=== PATIENT | female | born 1935 | race Caucasian/White ===

== ENCOUNTER → 2016-12-12 | Outpatient (CLI) | payer OTHER ==
[~2016-12-12] VITALS: Ht 147.3 cm; Wt 46.4 kg
[~2016-12-12] MED LIST: ACETAMINOPHEN325 M1 PO; ADULT LOW DOSE81 MG PO; ALEVE220 MG PO; AMBIEN 5 MG TABL5 M1 PO; ANTIBIOTIC OINTMENT; ASPIR 8181 M1 PO; ATORVASTATIN CA80 MG PO; CALCIUM OYSTER500 MG PO; CARISOPRODOL 3350 MG PO; CELEBREX 200 M200 M1 PO; CELEBREX 200 M200 MG PO; COLACE 100 MG100 MG OR; CYMBALTA30 MG PO; DESYREL100 MG PO; DESYREL50 MG PO; DICLOFENAC SOD50 M1 PO; DILAUDID 4 MG TA4 M1 PO; DILAUDID4 MG PO; FAMOTIDINE20 MG OR; FENTANYL PA12 MCG/HR TD; FENTANYL PA25 MCG/HR TD; FENTANYL PA25 MCG/HR TP; FENTANYL PA50 MCG/HR TP; FISH OIL 1,0001 EAC7 PO; FLEXERIL PO; FORTEO PEN750 MCG/3 SC; GABAPENTIN100 MG PO; GLYCOLAX POWDER17 G1 PO; IBUPROFEN200 M2 PO; INTRATHECAL MED; KEFLEX500 MG PO; LEVOTHROID PO; LEVOTHYROXINE0.2 M1 PO; LIDODERM 5%1 PATCH TOP; LIPITOR80 MG PO; MELOXICAM7.5 MG PO; MULTIVITAMINS PO; NEURONTIN 300300 M1 PO; OMEPRAZOLE40 MG PO; PRILOSEC 10MG C10 MG PO; SENNA PO; SIMVASTATIN80 MG PO; TRAZODONE 150150 M1 PO; TRAZODONE HCL50 MG PO; VITAMIN D 5050000 I1 PO; VITAMIN D1000 UNI1 PO; VITAMIN D2000 UNIT PO; XANAX 0.25 MG0.25 MG PO
--- NOTE | ~2016-12-12 | HPC ---
[facility] [address] [place] [address] PAIN MANAGEMENT CONSULTATION Name: DADA MAIREE Room #: REG [facility]#: [id number] Admission: 12/12/16 Attend Phys: Balta Frausto MD Discharge: Date of : 33 Report #: [id number] THIS REPORT FOR: //name// CC: OLI Frausto Followup visit for intrathecal pump management and chronic intractable pain and management of high risk medication. The patient is here today with a cold. She , both she and her had an upper respiratory tract infection, which has been going around flocks with [place]. 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 Pain management has been good with the pump and her spinal cord stimulator placed by Dr. Moore. 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 PHYSICAL EXAMINATION: GENERAL: Her energy level is down. She seems tired. VITAL SIGNS: Her blood pressure 124/67, respirations are 28. RESPIRATION: She has course breath sounds bilaterally, but is comfortable with breathing. NOSE: Nasal congestion is noted. BACK: Tender. She ambulates without a cane. IMPRESSION: Chronic low back pain, currently well managed with intrathecal therapy and spinal cord stimulation. Occasional breakthrough dose of hydromorphone has been provided for her under terms of a written opioid agreement. IMPRESSION: 1. Chronic intractable back pain, post-laminectomy. 2. Management of intrathecal infusion pump with refill and reprogramming today. 3. Management of high risk medication. 4. Recent upper respiratory tract infection, likely viral. PROCEDURE: Skin was prepped with ChloraPrep, skin anesthetized. A 22-gauge non-coring needle advanced in the pump. Old medication removed and discarded. Pump was refilled with clonidine and hydromorphone. Reprogramming session performed. Her next refill will be before March 09. Her JOHN is 44. By: [id number] Balta Frausto MD /nt
[2016-12-12 14:35] VITALS: BP 124/67
== END ==
LOC: PAIN 07:14
DX: Z45.1 Encounter for adjustment and management of infusion pump (principal); G89.29 Other chronic pain

== ENCOUNTER → 2017-02-20 | Outpatient (CLI) | payer OTHER ==
[~2017-02-20] VITALS: Ht 149.9 cm; Wt 47.7 kg
[~2017-02-20] MED LIST changes: +AMOXICILLIN 50500 MG PO; +FUROSEMIDE 20 M20 MG PO; +MOBIC15 MG PO
--- NOTE | ~2017-02-20 | HPC ---
[facility] [address] [place] [address] PAIN MANAGEMENT CONSULTATION Name: DADA MARIEE Room #: REG MIN Darius.#: [id number] Admission: 02/20/17 Attend Phys: Balta Frausto MD Discharge: Date of : 33 Report #: [id number] THIS REPORT FOR: //name// CC: Richard Frausto DATE OF SERVICE: 02/20/2017 Followup visit for chronic low back pain with radiculopathy, post-laminectomy syndrome, management of intrathecal infusion pump and high risk medication. The patient returns to the pain clinic today and would like to renew her hydromorphone. She has an intrathecal pump. It is providing high dose hydromorphone and clonidine high enough that we have decided that we are not going to increase her pump due to concerns of intrathecal granuloma. She remains the only patient of my practice. 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 She is at risk of this once again and we are doing our best to prevent that. She also has a spinal cord stimulator placed recently by Dr. Moore and she feels this has helped her pain and neuropathy as well. Nonetheless, she still uses hydromorphone for breakthrough pain as needed. She is doing well. She came in today with her badge on. 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 Her pain intensity is a 4/10, which she describes mostly his low back and left knee pain. Knee pain has been ongoing for about 6 months. There have been no other medical changes since her last visit here. She and her Curly are delightful and doing well in their [facility] [place]. PHYSICAL EXAMINATION: She is bright eyed, pleasant, alert and oriented. No signs of overmedication. Good insight and memory. Blood pressure 121/41, heart rate 64. BMI is 21.2. Pump is nontender in the right lower abdomen. Spinal cord stimulator in the back also looks good with no tenderness. Knee is tender, is most problematic pain at this time. IMPRESSION: 1. Chronic intractable back pain, post-laminectomy syndrome. 2. Osteoarthritis, right knee. 3. Management of intrathecal infusion pump. 4. Management of high risk medications. PLAN: I have renewed her hydromorphone at 4 mg 1 tablet q. 6 hours p.r.n. [address] [address] PAIN MANAGEMENT CONSULTATION Name: DADA MRAIEE Room #: REG CLI [facility]#: [id number] Admission: 02/20/17 Attend Phys: Balta Frausto MD Discharge: Date of : 33 Report #: [id number] breakthrough pain. Important safeguarding issues reviewed once again. Followup visit is scheduled for pump refill sometime in the next month or so. <ELECTRONICALLY SIGNED> By: Balta Frausto MD 02/20/17 1714 1135 1222 Balta Frausto MD /felix
[2017-02-20 09:50] VITALS: BP 121/41
== END ==
LOC: PAIN 01-24 07:03
DX: M96.1 Postlaminectomy syndrome, not elsewhere classified (principal); M54.5 Low back pain; M17.11 Unilateral primary osteoarthritis, right knee

== ENCOUNTER → 2017-03-10 | Outpatient (CLI) | payer OTHER ==
[~2017-03-10] VITALS: Ht 149.9 cm; Wt 47.4 kg
[2017-03-10 13:53] VITALS: BP 113/52
== END | disposition home or self-care (01) ==
LOC: PAIN 06:56
DX: M54.5 Low back pain (principal); M96.1 Postlaminectomy syndrome, not elsewhere classified; M25.562 Pain in left knee; G89.29 Other chronic pain; M19.90 Unspecified osteoarthritis, unspecified site; F11.20 Opioid dependence, uncomplicated; Z98.890 Other specified postprocedural states; Z79.82 Long term (current) use of aspirin

== ENCOUNTER → 2017-06-05 | Outpatient (CLI) | payer OTHER ==
[~2017-06-05] VITALS: Ht 149.9 cm; Wt 47.1 kg
[~2017-06-05] MED LIST changes: +ALPRAZOLAM 0.0.25 M1 PO; +LASIX 20 MG TAB20 MG PO
--- NOTE | ~2017-06-05 | HPC ---
[facility] [place] [address] PAIN MANAGEMENT CONSULTATION Name: DADA MARIEE Room #: REG [facility] Tanvi#: [id number] Admission: 06/05/17 Attend Phys: Balta Frausto MD Discharge: Date of : 33 Report #: [id number] THIS REPORT FOR: //name// CC: Richard Frausto DATE OF SERVICE: 06/05/2017 REASON FOR VISIT: Followup visit for management of chronic back pain and intrathecal infusion pump. HISTORY OF PRESENT ILLNESS: The patient is here today for routine refill of her intrathecal infusion pump. She is doing well. She is on high dose intrathecal therapy with hydromorphone maximum with PTM at 12.6 mg per day and clonidine 84 mcg per day. No changes will be performed today this high-dose infusion. She reports that her pain in her back as 0. She does have pain in her knee at a level 7/10. I have talked about injections and she has had injections previously. She would possibly be a candidate for regenerative medicine in that knee on the left, which has localized tenderness and swelling. We do have x-ray evidence of degenerative changes throughout the left knee. She asked me today if she would be a candidate for knee replacement. PHYSICAL EXAMINATION: GENERAL: She is a eliud 81-year-old pleasant, alert and oriented, without signs of anxiety, depression or overmedication. She moves from a sitting to standing position and ambulates with a stable gait. She does not appear to be a fall risk. VITAL SIGNS: Blood pressure is 139/52, heart rate 72 and BMI is 21. ABDOMEN: Pump is in the left lower abdomen, is nontender. She has extensive scarring throughout her back from multiple previous surgeries. MUSCULOSKELETAL: She has pain in her left knee with flexion and extension. There is mild crepitus appreciated. Most of the pain in her knee is medial where x-rays suggested she has more degenerative osteoarthritis noted. IMPRESSION: 1. Chronic back pain with radiculopathy status post multiple back surgeries. 2. Management of intrathecal infusion pump with refill. 3. Osteoarthritis, particularly involving left knee today. 4. Management of high risk medications. I provided with a small dose of hydromorphone 4 mg for breakthrough as needed. PROCEDURE: Refill of intrathecal infusion pump with reprogramming. PROCEDURE: Skin was prepped with ChloraPrep, skin anesthetized and a 22-gauge non-coring needle advanced in the pump. Old medication removed and discarded. [address] [address] PAIN MANAGEMENT CONSULTATION Name: DADA MARIEE Room #: REG MIN Tanvi#: [id number] Admission: 06/05/17 Attend Phys: Balta Frausto MD Discharge: Date of : 33 Report #: [id number] Pump was refilled with hydromorphone 30 mg per mL, clonidine 200 mcg/mL with a daily dose of hydromorphone 12.6 and clonidine 84. Low reservoir alarm date is now 08/29/ with an JOHN of 38 months. Programming information was double checked by myself and then she was given a copy and discharged with a followup visit scheduled in August. I also provided her with a prescription for her hydromorphone 4 mg #121 tablets q. 8 hours as needed for breakthrough pain. She averages about 1-2 tablets per day depending on the intensity of her activity. By: [id number] Balta Frausto MD /nt
[2017-06-05 10:03] VITALS: BP 139/52
== END | disposition home or self-care (01) ==
LOC: PAIN 09:34
DX: Z45.1 Encounter for adjustment and management of infusion pump (principal); M54.10 Radiculopathy, site unspecified; M17.12 Unilateral primary osteoarthritis, left knee; Z79.899 Other long term (current) drug therapy

== ENCOUNTER → 2017-09-01 | Outpatient (CLI) | payer OTHER ==
[~2017-09-01] VITALS: Ht 149.9 cm; Wt 47.6 kg
[~2017-09-01] MED LIST changes: +MELATONIN1 MG PO; +VICODIN ES 7.51 EACH PO
--- NOTE | ~2017-09-01 | HPC ---
[facility] [place] [address] PAIN MANAGEMENT CONSULTATION Name: DADA MARIEE Room #: REG [facility]#: [id number] Admission: 09/01/17 Attend Phys: Balta Frausto MD Discharge: Date of : 33 Report #: [id number] THIS REPORT FOR: //name// CC: Richard Frausto DATE OF SERVICE: 09/01/2017 Followup visit for chronic pain with management of intrathecal infusion pump. The patient returns to pain clinic today for refill of her intrathecal infusion pump. She has a combination of hydromorphone, clonidine and fairly high dose. We decided to refill her pump today and no change will be necessary. She had a little bit of increased pain recently here in her low back and this has been exacerbated by walking and standing. Medications reviewed and reconciled. She is currently not taking hydromorphone much at all. She uses hydrocodone every 4-[address] day in [address] of that. It does provide some additional symptomatic relief to her. Hydrocodone has previously been provided by her clinic. She does not need it provided today. My primary role for the patient is to refill her pump. We discussed her pump management. Her next pump is due in about 2-1/2 years. She has 35 months of estimated reserve on this pump. 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 We will keep an eye on that. She does not have any signs of compression at this time. PQRS reviewed. She does have osteoarthritis, particularly involving the left knee. She has chronic back pain with radiculopathy. She does not smoke. She is not a fall risk. She remains active. She is on an opioid agreement in the past, but no longer. PLAN: Refill intrathecal infusion pump. PROCEDURE: Skin was prepped with ChloraPrep. Skin anesthetized and a 22-gauge non-coring needle advanced in the pump. Old medication removed and discarded. Pump refilled with hydromorphone and clonidine. Reprogramming session performed. Her reservoir alarm date is in the 89 days that is 11/29. She has an JOHN of 35 months. PLAN: Follow up in 3 months. By: [id number] Balta Frausto MD /nt
[2017-09-01 14:18] VITALS: BP 108/85
== END | disposition home or self-care (01) ==
LOC: PAIN 07:15
DX: Z45.1 Encounter for adjustment and management of infusion pump (principal)

== ENCOUNTER → 2017-11-27 | Outpatient (CLI) | payer OTHER ==
[~2017-11-27] VITALS: Ht 149.9 cm; Wt 47.7 kg
[~2017-11-27] MED LIST changes: -LEVOTHYROXINE0.2 M1 PO; +SYNTHROID100 MC1 PO; +WOMEN'S DAILY1 EAC4 PO
--- NOTE | ~2017-11-27 | HPC ---
[facility] [address] [place] [address] PAIN MANAGEMENT CONSULTATION Name: DADA MARIEE Room #: REG MIN Tinajero#: [id number] Admission: 11/27/17 Attend Phys: Balta Frausto MD Discharge: Date of : 33 Report #: [id number] THIS REPORT FOR: //name// CC: KENNETH Frausto DATE OF SERVICE: 11/27/2017 Followup visit to manage intrathecal infusion pump. The patient returns to Pain Clinic today for refill of her intrathecal infusion pump. She continues to be very active. She and her live in an independent living at [facility]. 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 She takes in many of the activities. 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 Her was a and she was at home. 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 She has both an intrathecal pump and a spinal cord stimulator. I was pessimistic about the stimulator, but I will have to admit that it seems to have made a good difference in her pain both in her back and her legs, and she has requested today that we taper her intrathecal pump. I am glad to do so and we will try not to be too aggressive, but decrease the pump at every interval that we can. She still uses a small amount of breakthrough Dilaudid and hydrocodone. I have asked her to choose which medication works most effectively that is 4 mg up to 4 times a day or average doses 1-2. I provided her with 120 tablets today, which will last her between pump refill intervals. She can if need be take up to 4 a day on a severe day. PQRS review shows that she has osteoarthritis of the left knee and chronic back pain with spondylosis and radiculopathy. She does not use tobacco or alcohol and is not a fall risk, remaining very active. She is on an opioid agreement. We have renewed that today. The importance of safeguarding all opioid medications was stressed to her. She has completed a functional assessment tool as we have requested of each patient and her function level is high. She is at low risk for addiction. IMPRESSION: 1. Chronic intractable back pain status post laminectomy. 2. Management of intrathecal infusion pump with refill and reprogramming. 3. Management of opioid hydromorphone for severe episodes and breakthrough pain. [address] [address] PAIN MANAGEMENT CONSULTATION Name: DADA MARIEE Room #: REG CLI Mey#: [id number] Admission: 11/27/17 Attend Phys: Balta Frausto MD Discharge: Date of : 33 Report #: [id number] PROCEDURE: Refill and reprogramming of intrathecal infusion pump. Skin was prepped with ChloraPrep and anesthetized. A 22-gauge non-coring needle advanced in the pump. Old medication removed and discarded. Pump was refilled with a combination of hydromorphone and clonidine. The reprogramming session was performed to provide a reduction in dose of about 10%. She will be receiving hydromorphone 10.8 mg and clonidine 72 mcg. Her next refill is in about 100 days. <ELECTRONICALLY SIGNED> By: Balta Frausto MD 12/22/17 1408 1309 0036 Balta Frausto MD /nt
[2017-11-27 10:36] VITALS: BP 139/75
== END | disposition home or self-care (01) ==
LOC: PAIN 07:00
DX: Z45.1 Encounter for adjustment and management of infusion pump (principal); Z98.890 Other specified postprocedural states; Z79.899 Other long term (current) drug therapy; M17.12 Unilateral primary osteoarthritis, left knee; M47.20 Other spondylosis with radiculopathy, site unspecified

== ENCOUNTER → 2018-03-05 | Outpatient (CLI) | payer OTHER ==
[~2018-03-05] VITALS: Ht 149.9 cm; Wt 47.6 kg
[~2018-03-05] MED LIST changes: +LEVOTHYROXINE0.2 M1 PO; -SYNTHROID100 MC1 PO
--- NOTE | ~2018-03-05 | HPC ---
[facility] [place] [address] PAIN MANAGEMENT CONSULTATION Name: DADA MARIEE Room #: REG [facility].#: [id number] Admission: 03/05/18 Attend Phys: Balta Frausto MD Discharge: Date of : 33 Report #: [id number] THIS REPORT FOR: //name// CC: Richard Frausto DATE OF SERVICE: 03/05/2018 Followup visit for management of intrathecal infusion pump. The patient has chronic intractable back pain, post-laminectomy and is managed with intrathecal infusion pump and some breakthrough Dilaudid. She continues to live very well. 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 They just did a presentation on their time living in [place] to the entire group there. She is remaining quite functional and active as she ages. Pain has been a little bit worse in the last few weeks. She has a spinal cord stimulator placed by Dr. Moore, which had been working pretty well. She has been turning up her stimulator and I have asked her to contact the [facility] people so she can see if they can help with the stimulator. I think her intrathecal pump is maximized given her previous history of granuloma and we discussed that today. Allow her to continue using breakthrough hydromorphone and I think that is safer than increasing her pump. She uses roughly 4 tablets a day or 60 mg, which equates to 48 morphine milligram equivalents. PHYSICAL EXAMINATION: GENERAL: She is a bright and pleasant, alert and oriented 82-year-old. VITAL SIGNS: Blood pressure is 135/80, heart rate is 80, BMI is 21.2 and stable. MUSCULOSKELETAL: She can independently move from sitting to standing position, walks without a cane or other assist device. She has pain across her low back, pain with forward flexion, extension and flattening of some lumbar curve. She has some straight leg raising pain. No weakness is noted throughout the lower extremities. No numbness. 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 Her reflexes were absent. No evidence of hyperreflexia. IMPRESSION: 1. Chronic back pain, post laminectomy. 2. Management of intrathecal infusion pump with refill and reprogramming today. 3. Management of opioid, hydromorphone at 48 morphine milligram equivalents. [address] [address] PAIN MANAGEMENT CONSULTATION Name: DADA MARIEE Room #: REG MIN Tinajero#: [id number] Admission: 03/05/18 Attend Phys: Balta Frausto MD Discharge: Date of : 33 Report #: [id number] Education was provided today regarding CDC guidelines and her responsibilities in safeguarding her oral medication. PROCEDURE: Refill of intrathecal infusion pump. DESCRIPTION OF PROCEDURE: Skin was prepped with ChloraPrep. Skin anesthetized and a 22-gauge non-coring needle advanced in the pump. Old medication removed and discarded. Pump was refilled with hydromorphone and clonidine and reprogrammed. There was no increase. She has 28 months left on her battery of this pump, which her next will be her fourth! Daily dose is maximally 11 mg of hydromorphone and 74 mcg of clonidine. Followup visit planned in 2-3 months. By: [id number] Balta Frausto MD /nt
[2018-03-05 10:23] VITALS: BP 121/52
== END | disposition home or self-care (01) ==
LOC: PAIN 06:56
DX: Z45.1 Encounter for adjustment and management of infusion pump (principal); M54.5 Low back pain; G89.29 Other chronic pain; Z79.891 Long term (current) use of opiate analgesic; Z98.890 Other specified postprocedural states; Z79.82 Long term (current) use of aspirin; Z79.899 Other long term (current) drug therapy

== ENCOUNTER → 2018-04-02 | Outpatient (CLI) | payer OTHER ==
[~2018-04-02] VITALS: Ht 149.9 cm; Wt 48.4 kg
--- NOTE | ~2018-04-02 | HPC ---
[facility] [address] [place] [address] PAIN MANAGEMENT CONSULTATION Name: DADA MARIEE [facility] [id number] Admission: 04/02/18 Attend Phys: Balta Frausto MD Discharge: Date of : 33 Report #: [id number] THIS REPORT FOR: //name// CC: Richard Frausto DATE OF SERVICE: 04/02/2018 HISTORY OF PRESENT ILLNESS: The patient returns to pain clinic today in followup for chronic back pain. She made the appointment a few weeks ago when she had a few days of a significant increase in pain with radiation into her leg. She has both an intrathecal pump and a spinal cord stimulator. In those days, she was not as active as typical and this bothered her lot. The patient has never been one to sit still. She has overcome her spinal issues and her chronic pain quite nicely and continues to remain very active. Fortunately, as chronic pain often does improve with time, there was no involved treatment. She has been able to back down on her hydromorphone. She still has a few weeks left on her intrathecal pump. PQRS review shows that she is a pleasant female. She is not a fall risk. Her BMI is 21.5. Her blood pressure 134/55, heart rate 70, respirations 16, O2 sat 98%. Pain intensity is a 2-3/10 today. She has a walker that she uses for assistance, but has not fallen in the last 3 months. She is on an opioid agreement with our clinic and is at low risk for addiction. IMPRESSION: 1. Chronic back pain, post-laminectomy syndrome. 2. Management of intrathecal infusion pump. 3. 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 4. Management of intrathecal pump and oral opioid hydromorphone for breakthrough pain. She uses it cautiously only for severe pain. PLAN: No injections, no change in medications today. Counseling only. Total time with the patient about 20 minutes. By: [id number] Balta Frausto MD /nt
[2018-04-02 09:19] VITALS: BP 134/55
== END ==
LOC: PAIN 06:09
DX: M54.9 Dorsalgia, unspecified (principal); G89.29 Other chronic pain; M79.2 Neuralgia and neuritis, unspecified; Z79.891 Long term (current) use of opiate analgesic

== ENCOUNTER → 2018-06-15 | Outpatient (CLI) | payer OTHER ==
[~2018-06-15] VITALS: Ht 149.9 cm; Wt 48.4 kg
[~2018-06-15] MED LIST changes: -LEVOTHYROXINE0.2 M1 PO; +SYNTHROID100 MC1 PO
--- NOTE | ~2018-06-15 | HPC ---
[facility] [address] [place] [address] PAIN MANAGEMENT CONSULTATION Name: DADA MARIEE Room #: REG MIN Tinajero#: [id number] Admission: 06/15/18 Attend Phys: Balta Frausto MD Discharge: Date of : 33 Report #: [id number] THIS REPORT FOR: //name// CC: KENNETH Frausto DATE OF SERVICE: 06/15/2018 Followup visit for chronic low back pain, post-laminectomy syndrome. The patient returns to pain clinic today for refill and reprogramming of her intrathecal infusion pump. She continues to do well. 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 She remains active. She is bright and alert and upbeat. She is grateful for the pain relief that she receives from both her intrathecal pump and her spinal cord stimulator. She did have a rather dramatic improvement once the stimulator was placed. I had been less than enthusiastic when she talked about having it placed and I am more than happy to find out that I was wrong. I think it has made a substantial improvement in her ability to continue getting around and has limited her use of supplement opioid medication. I did provide her with hydromorphone 4 mg up to 4 times a day. She averages about 2 on an as-needed basis. She has an alprazolam prescription for 0.25 mg, which she takes at bedtime to aid with sleep and has done this for years without problem. I am well aware of the benzodiazepine and opioid interaction; however, she like many patients has shown no ill effects from the combination and is grateful for the benefit that each medication provides for her. Her opioid agreement has been reviewed in detail. She understands her responsibilities to safeguard her medication. PQRS shows that she is not a fall risk. She remained slender and fit. BMI is 21.5. She has some osteoarthritis in the left knee. She complains of a discomfort. There was some localized tenderness. Pain score overall, however, is only 2-3/10. She is on no blood thinners. No history of hypertension. She is on an opioid agreement signed in 2016 and is at low risk for addiction. She denies use of tobacco or alcohol. She is not a fall risk. IMPRESSION: 1. Chronic low back pain, post-laminectomy syndrome. 2. Management of intrathecal infusion pump with reprogramming session and refill. 3. Management of high risk oral medications. Oral hydromorphone was provided for breakthrough. PROCEDURE: Refill reprogramming. [address] [address] PAIN MANAGEMENT CONSULTATION Name: DADA MARIEE Room #: REG [facility]#: [id number] Admission: 06/15/18 Attend Phys: Balta Frausto MD Discharge: Date of : 33 Report #: [id number] Skin was prepped with ChloraPrep and anesthetized. A 22-gauge non-coring needle advanced in the pump. Old medication removed and discarded. Pump refilled with hydromorphone, clonidine and reprogramming session was performed. Daily dose will be hydromorphone 10.8 and clonidine 72.0 mcg per day. A followup visit is scheduled for 3 months. By: 1646 0103 Balta Frausto MD /nt
[2018-06-15 14:11] VITALS: BP 123/53
== END | disposition home or self-care (01) ==
LOC: PAIN 07:39
DX: Z45.1 Encounter for adjustment and management of infusion pump (principal); M54.5 Low back pain; G89.29 Other chronic pain; M96.1 Postlaminectomy syndrome, not elsewhere classified; Z79.891 Long term (current) use of opiate analgesic; Z96.652 Presence of left artificial knee joint; Z79.82 Long term (current) use of aspirin; Z79.899 Other long term (current) drug therapy

== ENCOUNTER → 2018-09-21 | Outpatient (CLI) | payer OTHER ==
[~2018-09-21] VITALS: Ht 149.9 cm; Wt 48.1 kg
--- NOTE | ~2018-09-21 | HPC ---
[facility] [address] [place] [place] [address] PAIN MANAGEMENT CONSULTATION Name: DADA MARIEE Room #: REG [facility].#: [id number] Admission: 09/21/18 Attend Phys: Balta Frausto MD Discharge: Date of : 31 Report #: [id number] THIS REPORT FOR: //name// CC: KENNETH Frausto DATE OF SERVICE: 09/21/2018 Followup visit for chronic low back pain with radiculopathy radiating into the legs bilaterally. Management of intrathecal infusion pump refill and reprogramming. The patient returns to pain clinic today for refill and reprogramming of her intrathecal infusion pump. She is doing well. She is using limited amounts of oral opioid hydromorphone. Last prescription for hydromorphone 4 mg was filled on 08/28/2018. She is here today for refill of her intrathecal infusion pump. She continues to report good control of pain with her pump. She is a rather high settings, hydromorphone dose is 10.8 mg, clonidine 72 mcg. Maximum daily dose with use of PTM is 11.175 mg of hydromorphone. She continues to remain very active. She and her live at [facility]. She is able to manage all of her own care. A friend is with her daughter and we discussed the fact that one of her 2 daughters is moving to [place]. This will be a bit of a challenge as she provides some both physical and emotional support for the parents. PQRS reveals that she has not fallen and does not appear to be a fall risk. She has some osteoarthritis, mostly in the left knee. Pain score today on report is 2/10, well controlled with intrathecal pump and oral medication as well as spinal cord stimulator. No history of hypertension. We reviewed our opioid agreement, which was signed in 2015. She has no risks that I see currently for addiction, using medication carefully and appropriately. She does not use alcohol or tobacco. IMPRESSION: 1. Chronic low back pain, post laminectomy syndrome. 2. Management of intrathecal infusion pump with reprogramming. 3. She does not need medication refills today. We will see her back in the clinic for that in the future. PROCEDURE: The patient was placed in the supine position. Skin prepped with [address] [address] PAIN MANAGEMENT CONSULTATION Name: DADA MARIEE Room #: REG [facility].#: [id number] Admission: 09/21/18 Attend Phys: Balta Frausto MD Discharge: Date of : 33 Report #: [id number] ChloraPrep. Skin anesthetized over the intrathecal pump. A 22-gauge non-coring needle advanced in the pump. Old medication removed and discarded. We expected 4.8 and got nearly 6.5. It was discarded per protocol. Pump was refilled then with a combination of hydromorphone and clonidine. A reprogramming session was performed without change. She will be discharged on hydromorphone continuous at 10.8 and clonidine 72 mcg a day. PTM allowing for a 3.4% increase as needed. Next refill is scheduled for December. Her JOHN is 23 months. Programming information was checked and a copy given to the patient. We will see her back in the pain clinic in 2 months. By: [id number] Balta Frausto MD /nt
[2018-09-21 09:19] VITALS: BP 158/66
--- NOTE | 2018-09-21 09:38 | NUR ---
Pain Clinic Assessment: 1. History of Osteoarthritis: Left Lower Extremity History of Rheumatoid Arthritis: Not Applicable 2. Height: 4 ft. 11 in. 149.9 cm. Weight: 106.0 lb. oz. 48.081 kg. Patient's BMI: 21.4 3. Vital Signs: BP: 158/66 Pulse: 63 Resp: 14 Temp: 02 Sat: 98 ECG Mon: 4. Pain Intensity: 2 5. Fall Risk: Dizziness: N Needs help standing or walking: Y Fallen in the last 3 months: N Fall risk comments: 6. Patient on Blood Thinner: None 7. History of Hypertension: N 8. Opioid Therapy greater than 6 weeks: Y Opiate Contract Signed: 03/11/16 9. Risk Assessment Tool Provided: 10. Functional Assessment Tool: 11. Recreational Drug Use: Never Drug Type: Tobacco Use: Never Smoker Tobacco Type: Amount or Packs/day: How Many Years: Alcohol Use: Yes Frequency: Quant:
== END | disposition home or self-care (01) ==
LOC: PAIN 07:23
DX: Z45.1 Encounter for adjustment and management of infusion pump (principal); M54.16 Radiculopathy, lumbar region; G89.29 Other chronic pain; Z79.891 Long term (current) use of opiate analgesic; Z96.652 Presence of left artificial knee joint; Z79.82 Long term (current) use of aspirin; Z79.899 Other long term (current) drug therapy; Z98.890 Other specified postprocedural states

== ENCOUNTER → 2018-12-31 | Outpatient (CLI) | payer OTHER ==
[~2018-12-31] VITALS: Ht 149.9 cm; Wt 49.9 kg
[~2018-12-31] MED LIST changes: +BIOTIN1 M1 PO; +FISH OIL 1,001000 M2 PO; +VITAMIN E100 UNI1 PO; +VOLTAREN GEL 1100 G2 TOP
--- NOTE | ~2018-12-31 | HPC ---
[facility] [place] [place] [address] [address] PAIN MANAGEMENT CONSULTATION Name: DADA MARIEE [facility] [id number] Admission: 12/31/18 ������������������ Attend Phys: Balta Frausto MD Discharge: ������������������ Date of : 33 Report #: [id number] THIS REPORT FOR: //name// CC: Richard Frausto DATE OF SERVICE: 12/31/2018 CHIEF COMPLAINT: Followup visit for chronic low back pain with radiculopathy, post-laminectomy syndrome. The patient returns to pain clinic today for refill and reprogramming of intrathecal infusion pump, which is working well. She has had some recent increases in pain. She scores her pain as a 7/10. Much of her pain is in her low back radiating into her legs, but she also has left knee pain. She had a left knee replacement in 2017. Both of these pains are chronic and medications through the pump and oral supplement have done a nice job of helping manage pain. Her intrathecal pump uses clonidine and hydromorphone. We will continue on current dosing. PQRS review is completed. She has a history of osteoarthritis involving her back, bilateral knees, bilateral hand. She has a BMI of 22. Her pain intensity is a 7/10. She is not a fall risk, nor has she fallen in the last 3 months. She takes no medications for hypertension nor is she on a blood thinner. She has completed her written opioid agreement for the use of her hydrocodone. All medications have been reviewed and reconciled including those that we provide orally for her chronic pain. She has completed an opioid risk assessment tool and is at low risk for addiction. She denies use of tobacco and alcohol. PHYSICAL EXAMINATION: GENERAL: She is pleasant, alert, oriented 83-year-old. VITAL SIGNS: Blood pressure 136/60, heart rate 68, respirations 16. She is 4 feet 11 inches, 110 pounds. She can easily move from sitting to standing position. She walks with a stable gait. CHEST: Clear. CARDIAC: Rhythm is regular. ABDOMEN: Soft. She has tenderness across her low back from her previous surgery. She has bilateral positive straight leg raising discomfort. The pump is located in the left lower abdomen. She also has a spinal cord stimulator battery in the right hip. IMPRESSION: [facility] [place] [place] [address] [place] [address] PAIN MANAGEMENT CONSULTATION Name: DADA MARIEE Room #: REG [facility].#: [id number] Admission: 12/31/18 ������������������ Attend Phys: Balta Frausto MD Discharge: ������������������ Date of : 33 Report #: [id number] 1. Chronic low back pain, post-laminectomy syndrome. 2. Management of intrathecal infusion pump. 3. Diffuse osteoarthritis. RECOMMENDATIONS: Refill reprogram intrathecal pump and renew hydromorphone 4 mg 120 tablets 1 tablet q. 6 hours as needed for breakthrough pain. She also takes alprazolam low dose 0.25 chronically for sleep and this was renewed as well. Risks of opioids and benzodiazepines have been discussed with the patient, but she has shown safety in using them cautiously over a number of years. PROCEDURE: Pump refill and reprogram. Skin was prepped with ChloraPrep. A 22-gauge non-coring needle advanced in the pump. Old medication removed and discarded per protocol. Pump refilled then with a combination of hydromorphone and clonidine, a total of 39.5 mL. Reprogramming session was performed. The daily dose will be 10.8 mg of hydromorphone, 72.0 mg of clonidine per day. Reprogramming was double checked and a copy of the information provided to the patient for her own use. I will see her back in the pain clinic in 2-3 months. ��������������������������������������������� ���������������������������������������� By: ��������������������������������������������� [id number] Balta Frausto MD /nt
[2018-12-31 09:43] VITALS: BP 136/60
--- NOTE | 2018-12-31 09:59 | NUR ---
Pain Clinic Assessment: 1. History of Osteoarthritis: BACK B/L KNEES B/L HANDS History of Rheumatoid Arthritis: Not Applicable 2. Height: 4 ft. 11 in. 149.9 cm. Weight: 110.0 lb. oz. 49.896 kg. Patient's BMI: 22.2 3. Vital Signs: BP: 136/60 Pulse: 68 Resp: 16 Temp: 02 Sat: 100 ECG Mon: 4. Pain Intensity: 7 5. Fall Risk: Dizziness: N Needs help standing or walking: N Fallen in the last 3 months: N Fall risk comments: 6. Patient on Blood Thinner: None 7. History of Hypertension: N 8. Opioid Therapy greater than 6 weeks: Y Opiate Contract Signed: 03/11/16 9. Risk Assessment Tool Provided: 10. Functional Assessment Tool: 11. Recreational Drug Use: Never Drug Type: Tobacco Use: Never Smoker Tobacco Type: Amount or Packs/day: How Many Years: Alcohol Use: Yes Frequency: Weekly Quant: 1/2 GLASS
== END | disposition home or self-care (01) ==
LOC: PAIN 06:44
DX: Z45.1 Encounter for adjustment and management of infusion pump (principal); M54.16 Radiculopathy, lumbar region; G89.29 Other chronic pain; M96.1 Postlaminectomy syndrome, not elsewhere classified; M19.90 Unspecified osteoarthritis, unspecified site; Z79.891 Long term (current) use of opiate analgesic; Z96.652 Presence of left artificial knee joint; Z79.82 Long term (current) use of aspirin; Z79.899 Other long term (current) drug therapy; Z98.890 Other specified postprocedural states

== ENCOUNTER → 2019-04-12 | Outpatient (CLI) | payer OTHER ==
[~2019-04-12] VITALS: Ht 149.9 cm; Wt 48.5 kg
[2019-04-12 16:09] VITALS: BP 166/52
--- NOTE | 2019-04-12 16:25 | NUR ---
Pain Clinic Assessment: 1. History of Osteoarthritis: BACK B/L KNEES B/L HANDS History of Rheumatoid Arthritis: Not Applicable 2. Height: 4 ft. 11 in. 149.9 cm. Weight: 107.0 lb. oz. 48.535 kg. Patient's BMI: 21.6 3. Vital Signs: BP: 166/52 Pulse: 64 Resp: 14 Temp: 02 Sat: 98 ECG Mon: 4. Pain Intensity: 5 5. Fall Risk: Dizziness: N Needs help standing or walking: Y Fallen in the last 3 months: N Fall risk comments: USES WALKER 6. Patient on Blood Thinner: None 7. History of Hypertension: N 8. Opioid Therapy greater than 6 weeks: Y Opiate Contract Signed: 03/11/16 9. Risk Assessment Tool Provided: 0 LOW 10. Functional Assessment Tool: 15 11. Recreational Drug Use: Never Drug Type: Tobacco Use: Never Smoker Tobacco Type: Amount or Packs/day: How Many Years: Alcohol Use: Yes Frequency: Quant:
--- NOTE | 2019-04-13 13:44 | HPC ---
[facility] [address] [place] [address] PAIN MANAGEMENT CONSULTATION Name: DADA MARIEE Room #: REG MIN Tin[facility]ero#: [id number] Admission: 04/12/19 ������������������ Attend Phys: Eryn Damian Discharge: ������������������ Date of : 33 Report #: [id number] THIS REPORT FOR: //name// CC: Eryn Wallis DATE OF SERVICE: 04/12/2019 CHIEF COMPLAINT: Chronic low back pain with radiculopathy, post-laminectomy syndrome. HISTORY OF PRESENT ILLNESS: This patient returns to the pain clinic today for refill of her intrathecal pump that she uses to help treat her ongoing chronic low back pain. She also uses some hydromorphone and would like a refill of that medication as well. The patient tells me that her pain score is 5/10. It is mostly located in her lower back that radiates into her bilateral legs. She uses clonidine and hydromorphone in her intrathecal pump. ALLERGIES: No known drug allergies. CURRENT LIST OF MEDICATIONS: Fish oil, vitamin E, biotin, Voltaren gel, Dilaudid 4 mg p.r.n., Women's daily vitamin, melatonin 1 mg at bedtime, alprazolam 0.25 at bedtime, meloxicam 15 mg daily, vitamin D, aspirin 81 mg daily, Synthroid 100 mcg daily, atorvastatin 80 mg at bedtime, and MiraLax. PQRS: 1. She has a history of osteoarthritis involving her back, bilateral knees and hands. She denies any rheumatoid arthritis. 2. Her height is 4 feet 11 inches, her weight is 107, BMI is 22. 3. Vital Signs: Blood pressure 166/52, pulse is 64, respirations 14, oxygen sat is 98%. 4. The patient's pain score is 5/10. 4. Fall risk: Denies dizziness; does use a walker to aid in walking. She has not fallen in the last 3 months. 5. The patient is not on any blood thinners or does not take medicine for hypertension. 6. She has opioid therapy greater than 6 weeks; therefore, an opioid signed contract is on the chart. Her risk assessment tool is low and her functional assessment is low for addiction. 7. She denies any use of tobacco, alcohol or prescription drugs. We did check the prescription monitoring system. The patient is filling appropriately for her medications. PHYSICAL EXAMINATION: GENERAL: This is an alert and orientated very pleasant 83-[place] [address] PAIN MANAGEMENT CONSULTATION Name: DADA MARIEE [facility] [id number] Admission: 04/12/19 ������������������ Attend Phys: Eryn Damian Discharge: ������������������ Date of : 33 Report #: [id number] appears her stated age. HEENT: Normocephalic, atraumatic. Extraocular eye muscles are intact. Mucous membranes are moist. MUSCULOSKELETAL: She can moves easily from sitting to standing position. She walks with a normal gait. She does complain of tenderness across her lumbar back from previous surgeries, bilateral positive straight leg raising causes some discomfort. ABDOMEN: Her pump is located in her lower left quadrant of the abdomen. She has a spinal cord stimulator battery in her right hip. IMPRESSION: 1. Chronic low back pain, post-laminectomy syndrome. 2. Diffuse osteoarthritis. 3. Management of intrathecal infusion pump. 4. Management of opioid medications under terms of written opioid agreement. PROCEDURE: PUMP REFILL AND REPROGRAM: Skin was prepped with ChloraPrep. A 22-gauge non-coring needle was advanced into the pump. Old medication was removed and discarded per protocol. The pump was refilled with a combination of hydromorphone 30 mg/mL and clonidine 200 mcg/mL, a total of 39.5 mL were infused. Reprogramming session was performed. Total daily dose of her medication was remained unchanged at 10.8 mg of hydromorphone a day and clonidine 72 mcg per day. The patient does have a PTM that allows her 4 additional activations in a 24-hour period with no changes to that made. Reprogramming was double checked with Alyssa Chan, a nurse and information provided from that session for the patient her pump refill date with maximum activations is 07/21/2019. The patient was given scripts for Dilaudid 4 mg tablets every 6 hours p.r.n., #120 for release today and 4-week. Prior to being discharged, the patient started to complain of some itching around her intrathecal pump site. It was noted in the area where she was cleaned with a ChloraPrep scrub. The patient was given ice for her trip home and instructed to use Benadryl cream not oral Benadryl, Benadryl cream to place on that when she arrives home. If she has any further issues, she is to notify us or the nurse at the facility where she lives. The patient is seen in collaboration with Dr. Frausto. The patient will call us for followup as needed. ��������������������������������������������� <ELECTRONICALLY SIGNED> ���������������������������������������� By: Eryn Damian ��������������������������������������������� 04/13/19 [id number] [id number] Eryn Damian /nt
== END | disposition home or self-care (01) ==
LOC: PAIN 12:11
DX: Z45.1 Encounter for adjustment and management of infusion pump (principal); M54.16 Radiculopathy, lumbar region; M96.1 Postlaminectomy syndrome, not elsewhere classified; M19.90 Unspecified osteoarthritis, unspecified site; Z79.899 Other long term (current) drug therapy; Z79.82 Long term (current) use of aspirin

== ENCOUNTER → 2019-07-22 | Outpatient (CLI) | payer OTHER ==
[~2019-07-22] VITALS: Ht 149.9 cm; Wt 48.1 kg
--- NOTE | ~2019-07-22 | HPC ---
[facility] [address] [address] PAIN MANAGEMENT CONSULTATION Name: DADA MARIEE Room #: REG MIN [facility].#: [id number] Admission: 07/22/19 Attend Phys: Balta Frausto MD Discharge: Date of : 33 Report #: [id number] THIS REPORT FOR: //name// CC: Richard Frausto DATE OF SERVICE: 07/22/2019 REASON FOR VISIT: Followup visit for chronic intractable pain, management of intrathecal infusion pump and oral medications under terms of written opioid agreement. The patient is here today for renewal of her medications. She is reporting that her pain control is slightly worse. She has a pain score of 6 today. She has diffuse pain. Pain is in her back and she has diffuse osteoarthritis. PQRS REVIEW: 1. Positive for diffuse osteoarthritis of knees, hands and spondylosis. 2. BMI of 21.4. 3. Blood pressure 149/51, heart rate 62, O2 sat 96. 4. Pain intensity 6/10. 5. She has not fallen in the last 3 months and uses a walker, is cautious. 6. No blood thinning medications. 7. No history of hypertension. 8. Written opioid agreement last signed on 03/11/2016. She has also completed an opioid risk tool and scored 0 for addiction risk. 9. Her functional assessment score is 15/70, remarkable given her multiple surgeries and diffuse pain generators. She is doing well. 10. She denies use of tobacco, but drinks alcohol 2-3 times a week in a social setting. PHYSICAL EXAMINATION: As noted in the PQRS review. She is pleasant, alert and oriented with no signs of depression, anxiety or overmedication. Diffuse discomfort is noted in multiple joints and she has pain across her low back. Her gait is slightly antalgic. IMPRESSION: 1. Chronic low back pain, post-laminectomy syndrome. 2. Diffuse osteoarthritis. 3. Management of intrathecal infusion pump. 4. Management of opioid medications under terms of written opioid agreement. PROCEDURE: Skin was prepped with ChloraPrep and a 22-gauge non-coring needle advanced in the pump. Old medication removed and discarded by protocol. Pump was refilled with a combination of hydromorphone and clonidine and reprogramming [facility] [address] [place] [address] PAIN MANAGEMENT CONSULTATION Name: DADA MARIEE Room #: REG [facility].#: [id number] Admission: 07/22/19 Attend Phys: Balta Frausto MD Discharge: Date of : 33 Report #: [id number] session was performed. We expected 3.0 and retrieved 5.8. Her daily dose will be clonidine 72 mcg and hydromorphone 10 mg. PTM is available. In order to avoid increasing her intrathecal hydromorphone further, given her history of granuloma, I also provided with hydromorphone 4 mg 1 tablet q.6 hours p.r.n. and she was given a prescription with a release prescription for 4 weeks. Followup visit is scheduled in the pain clinic for pump refill on 10/30/2019. By: [id number] Balta Frausto MD /nt
[2019-07-22 09:40] VITALS: BP 149/51
--- NOTE | 2019-07-22 09:51 | NUR ---
Pain Clinic Assessment: 1. History of Osteoarthritis: BACK B/L KNEES B/L HANDS History of Rheumatoid Arthritis: Not Applicable 2. Height: 4 ft. 11 in. 149.9 cm. Weight: 106.0 lb. oz. 48.081 kg. Patient's BMI: 21.4 3. Vital Signs: BP: 149/51 Pulse: 62 Resp: 16 Temp: 02 Sat: 96 ECG Mon: 4. Pain Intensity: 6 5. Fall Risk: Dizziness: N Needs help standing or walking: N Fallen in the last 3 months: N Fall risk comments: USES WALKER 6. Patient on Blood Thinner: None 7. History of Hypertension: N 8. Opioid Therapy greater than 6 weeks: Y Opiate Contract Signed: 03/11/16 9. Risk Assessment Tool Provided: 0 LOW 10. Functional Assessment Tool: 11. Recreational Drug Use: Never Drug Type: Tobacco Use: Never Smoker Tobacco Type: Amount or Packs/day: How Many Years: Alcohol Use: Yes Frequency: Monthly Quant: 2-3 TIMES
== END | disposition home or self-care (01) ==
LOC: PAIN 06:48
DX: Z45.1 Encounter for adjustment and management of infusion pump (principal); G89.29 Other chronic pain; M54.5 Low back pain; M96.1 Postlaminectomy syndrome, not elsewhere classified; M19.90 Unspecified osteoarthritis, unspecified site; Z98.890 Other specified postprocedural states; Z79.891 Long term (current) use of opiate analgesic; Z79.82 Long term (current) use of aspirin; Z79.899 Other long term (current) drug therapy

== ENCOUNTER → 2019-10-21 | Outpatient (CLI) | payer OTHER ==
[~2019-10-21] VITALS: Ht 149.9 cm; Wt 47.6 kg
--- NOTE | ~2019-10-21 | HPC ---
[facility] [address] [address] PAIN MANAGEMENT CONSULTATION Name: DADA MARIEE Room #: REG [facility].#: [id number] Admission: 10/21/19 Attend Phys: Balta Frausto MD Discharge: Date of : 33 Report #: [id number] THIS REPORT FOR: cc: Richard Borges MD, Logan F. MD Morgan, Richard L. MD ~ THIS REPORT FOR: //name// CC: Richard Frausto DATE OF SERVICE: 10/21/2019 Followup visit for management of intrathecal infusion pump. The patient is here today for refill of her pump. She is quite stable. She has had good response to her intrathecal infusion and she also has a spinal cord stimulator, which she feels is useful and helpful. She has had multiple back surgeries and has post-laminectomy syndrome as well as diffuse osteoarthritis. In addition to her intrathecal medication, she is allowed to take some breakthrough hydromorphone but she uses it infrequently. PQRS REVIEW: Positive for osteoarthritis of hands and knees and she has multilevel spondylosis of the spine. She is 4 feet 11 inches, 105 pounds, BMI of 21.2, blood pressure 137/60, heart rate 52, respirations 14, O2 sat 99. Pain intensity 3-4/10 today. She has not fallen recently, but uses a walker to mitigate risk. She is on no blood thinners, but has no history of hypertension. She is on an opioid agreement, last signed in 2015 and she completed an opioid risk tool with a score of 0 suggesting a low risk for addiction. She does enjoy alcohol, but does not smoke. Her functional assessment score is a low 15. 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 IMPRESSION: 1. Chronic low back pain, post-laminectomy syndrome. 2. Management of intrathecal infusion pump. 3. Diffuse multi-joint osteoarthritis consistent with age. 4. Management of opioid medications under terms of written agreement, which we will do as necessary going forward. I have checked her prescription drug monitoring program information. Her last prescription was for tramadol prescribed by Dr. Colby, my last prescription for opioid medication was 4 mg of hydromorphone 120 tablets on 07/22/2019. Three months later, she does not need an additional prescription. [address] [address] PAIN MANAGEMENT CONSULTATION Name: DADA MARIEE Room #: REG MIN [facility]#: [id number] Admission: 10/21/19 Attend Phys: Balta Frausto MD Discharge: Date of : 33 Report #: [id number] PROCEDURE: Refill and reprogramming of intrathecal infusion pump. After informed consent, she was taken to the treatment area where she was prepped with ChloraPrep. A 22-gauge non-coring needle advanced into the intrathecal pump and old medication removed and discarded per protocol. Expected volumes were the same as those retrieved. Pump was then refilled with her combination of hydromorphone 30 mg and clonidine 200 mcg. Reprogramming session was performed and daily dose will be 10 mg of hydromorphone, 72 mcg of clonidine. She tolerated the procedure well. Copy of her programming information was provided to her. She was discharged with a followup appointment scheduled for a refill in about 3 months. By: [id number] Balta Frausto MD /nt
[2019-10-21 09:21] VITALS: BP 137/60
--- NOTE | 2019-10-21 09:38 | NUR ---
Pain Clinic Assessment: 1. History of Osteoarthritis: BACK B/L KNEES B/L HANDS History of Rheumatoid Arthritis: Not Applicable 2. Height: 4 ft. 11 in. 149.9 cm. Weight: 105.0 lb. oz. 47.628 kg. Patient's BMI: 21.2 3. Vital Signs: BP: 137/60 Pulse: 52 Resp: 14 Temp: 02 Sat: 99 ECG Mon: 4. Pain Intensity: 3-4 knee pain 5. Fall Risk: Dizziness: N Needs help standing or walking: Y Fallen in the last 3 months: N Fall risk comments: USES WALKER 6. Patient on Blood Thinner: None 7. History of Hypertension: N 8. Opioid Therapy greater than 6 weeks: Y Opiate Contract Signed: 03/11/16 9. Risk Assessment Tool Provided: 0 LOW 10. Functional Assessment Tool: 11. Recreational Drug Use: Never Drug Type: Tobacco Use: Never Smoker Tobacco Type: Amount or Packs/day: How Many Years: Alcohol Use: Yes Frequency: Quant:
== END | disposition home or self-care (01) ==
LOC: PAIN 06:53
DX: Z45.1 Encounter for adjustment and management of infusion pump (principal); G89.29 Other chronic pain; M54.5 Low back pain; M96.1 Postlaminectomy syndrome, not elsewhere classified; M19.90 Unspecified osteoarthritis, unspecified site; Z98.890 Other specified postprocedural states; Z79.899 Other long term (current) drug therapy; Z79.891 Long term (current) use of opiate analgesic

== ENCOUNTER → 2020-01-24 | Outpatient (CLI) | payer OTHER ==
[~2020-01-24] VITALS: Ht 149.9 cm; Wt 47.3 kg
[2020-01-24 09:32] VITALS: BP 169/62
--- NOTE | 2020-01-24 09:39 | NUR ---
Pain Clinic Assessment: 1. History of Osteoarthritis: BACK B/L KNEES B/L HANDS History of Rheumatoid Arthritis: Not Applicable 2. Height: 4 ft. 11 in. 149.9 cm. Weight: 104.2 lb. oz. 47.265 kg. Patient's BMI: 21.0 3. Vital Signs: BP: 169/62 Pulse: 63 Resp: 16 Temp: 02 Sat: 100 ECG Mon: 4. Pain Intensity: 2 5. Fall Risk: Dizziness: N Needs help standing or walking: N Fallen in the last 3 months: N Fall risk comments: USES WALKER 6. Patient on Blood Thinner: None 7. History of Hypertension: N 8. Opioid Therapy greater than 6 weeks: Y Opiate Contract Signed: 03/11/16 9. Risk Assessment Tool Provided: 0 LOW 10. Functional Assessment Tool: 11. Recreational Drug Use: Never Drug Type: Tobacco Use: Never Smoker Tobacco Type: Amount or Packs/day: How Many Years: Alcohol Use: Yes Frequency: Quant:
--- NOTE | 2020-01-25 18:18 | HPC ---
[facility] [place] [address] PAIN MANAGEMENT CONSULTATION Name: DADA MARIEE Room #: REG MIN MigdaliaMey.#: [id number] Admission: 01/24/20 Attend Phys: Balta Frausto MD Discharge: Date of : 31 Report #: [id number] THIS REPORT FOR: cc: Kenneth Borges MD,Kenneth Frausto,Balta Pat MD ~ CC: KENNETH Frausto DATE OF SERVICE: 01/24/2020 Followup visit for management of intrathecal infusion pump with refill reprogramming. The patient is here today for refill of her intrathecal pump. She is doing well. She and her are very active at [facility] where she is actively involved in boards and other organizations. They have been managing through the COVID-19 restrictions well and she proudly reports that there have been no cases reported in the entire complex. They are using social distancing techniques, they are getting their food in their room. They are getting outside a bit, walking in the fresh air. We talked about the importance of maintaining social distancing for the moment while the virus continues to threaten elderly populations. PQRS: Review shows that she has ongoing osteoarthritis. She has significant spondylosis of the spine. Her BMI is 21. Blood pressure 116/62, heart rate 63, respirations 16, O2 sat 100, pain intensity 2. She uses a walker when necessary and is careful, she has had no falls in the last 3 months. She denies hypertension or the use of blood thinners. She has completed an opioid risk tool and scores 0 and has very little risk of addiction. She has been taking a small amount of hydromorphone 4 mg for breakthrough and has found that her pain has been under better control recently, she has been using less and less of the breakthrough medicine, does not need a prescription. IMPRESSION: 1. Chronic intractable low back pain, post-laminectomy syndrome. 2. Management of intrathecal infusion pump with refill and reprogramming session. 3. Multi-joint osteoarthritis. 4. Management of opioid medications. She has a written opioid agreement. We discussed the importance of safeguarding all medications. PROCEDURE: Refill and reprogramming of intrathecal infusion pump. After informed consent, skin was prepped with ChloraPrep. A 22-gauge non-coring [address] [address] PAIN MANAGEMENT CONSULTATION Name: DADA MARIEE Room #: REG [facility] [id number] Admission: 01/24/20 Attend Phys: Balta Frausto MD Discharge: Date of : 31 Report #: [id number] needle advanced in the pump. Old medication removed and discarded per protocol. The pump was then refilled with a combination of her medications, hydromorphone and clonidine and a reprogramming session was performed with no increase in dose. Daily dose of medicine will be 10.8 mg of hydromorphone, 72 mcg of clonidine. Followup visit is planned in 1-2 months for refill. <ELECTRONICALLY SIGNED> By: Balta Frausto MD 01/25/20 [id number] Balta Frausto MD /nt
== END | disposition home or self-care (01) ==
LOC: PAIN 06:51
DX: Z45.1 Encounter for adjustment and management of infusion pump (principal); G89.29 Other chronic pain; M54.5 Low back pain; M96.1 Postlaminectomy syndrome, not elsewhere classified; M19.90 Unspecified osteoarthritis, unspecified site; Z98.890 Other specified postprocedural states; Z79.899 Other long term (current) drug therapy; Z79.891 Long term (current) use of opiate analgesic

== ENCOUNTER → 2020-05-01 | Outpatient (CLI) | payer OTHER ==
[~2020-05-01] VITALS: Ht 149.9 cm; Wt 46.8 kg
--- NOTE | ~2020-05-01 | HPC ---
[facility] [address] [place] [address] PAIN MANAGEMENT CONSULTATION Name: DADA MARIEE Room #: REG MIN Mccoy.#: [id number] Admission: 05/01/20 Attend Phys: Balta Frausto MD Discharge: Date of : 31 Report #: [id number] THIS REPORT FOR: cc: Nithin Johnson MD, Thomas M. MD Morgan, Richard L. MD ~ CC: Balta Johnson DATE OF SERVICE: 05/01/2020 Followup visit for management of intrathecal pump due to chronic intractable low back pain, post-laminectomy syndrome. The patient has chronic pain and has been well managed with an intrathecal pump. She comes to me today from [facility] for refill of her pump. I see her at roughly every 90 days. She is doing well. No adjustment in medication is necessary. Her pump infuses hydromorphone at a steady rate of 10.8 mg per day with clonidine at 72 mcg per day. This controls both her somatic back pain and also neuropathic pain. In addition, I provided her and have for many years a number of breakthrough medicines that she can take in lieu of increasing her pump. 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 She uses them sparingly and carefully safeguards them and is grateful for them when she needs them. She denies any significant side effects. That dose is hydromorphone 4 mg 1 tablet b.i.d. p.r.n. PQRS review is positive for osteoarthritis. She complains today of pain mostly in her spine where she has spondylosis, but she also has pain in her knees and hands. BMI is stable at 20.8, blood pressure 144/70, heart rate 72, respirations 14, O2 sat 98, pain intensity is 7/10. She uses a walker, but has not fallen. She is a fall risk and is cautious. She uses no blood thinners, nor is she treated for hypertension. She is on an opioid agreement signed last in 2015. Her opioid risk tool score is 0. She does not smoke. She occasionally has an alcoholic beverage with her , Curly, a musician, [employer] . They are living very well and independently at [facility]. PHYSICAL EXAMINATION: VITAL SIGNS: As noted: GENERAL: She is pleasant, alert and oriented, without any change in her overall affect or her mentation. She moves independently from sitting to standing position, her gait is antalgic. She has tenderness across her scar. Pump is in the left lower quadrant and nontender. IMPRESSION: 1. Chronic intractable low back pain, [place] [address] PAIN MANAGEMENT CONSULTATION Name: DADA MARIEE Room #: REG MIN Tinajero#: [id number] Admission: 05/01/20 Attend Phys: Balta Frausto MD Discharge: Date of : 31 Report #: [id number] 2. Osteoarthritis. 3. Management of intrathecal infusion pump with reprogramming session and refill. 4. Management of opioid medications with modest amount of breakthrough medications carefully managed under terms of written opioid agreement. Medications were renewed today, I reviewed the prescription drug monitoring program and there are no unexpected entries. PROCEDURE: Refill of intrathecal infusion pump. Skin was prepped with ChloraPrep. A 22-gauge non-coring needle advanced in the pump. Old medication removed and discarded per protocol. Pump was then refilled with her medication and reprogramming session was performed, a copy of the information provided to the patient at discharged without changes. Her next refill is scheduled for 08/10/2020. Prior to her discharge, we recognize that her JOHN or estimated replacement date is 08/04/2020. She does not want to go into the hospital, but we will need to probably replace that within the next 2-3 months. We run the risk of having her pump go out and we would be doing at an urgent basis. This could put her into withdrawal and something I do not want to do. An appointment will be scheduled with Dr. Olivier Moore and she was given his number. Followup visit planned when she has her pump replacement date is scheduled. By: [id number] Balta Frausto MD /nt
[2020-05-01 12:48] VITALS: BP 144/70
--- NOTE | 2020-05-01 13:03 | NUR ---
Pain Clinic Assessment: 1. History of Osteoarthritis: BACK B/L KNEES B/L HANDS History of Rheumatoid Arthritis: Not Applicable 2. Height: 4 ft. 11 in. 149.9 cm. Weight: 103.2 lb. oz. 46.811 kg. Patient's BMI: 20.8 3. Vital Signs: BP: 144/70 Pulse: 72 Resp: 14 Temp: 02 Sat: 98 ECG Mon: 4. Pain Intensity: 7 5. Fall Risk: Dizziness: N Needs help standing or walking: Y Fallen in the last 3 months: N Fall risk comments: USES WALKER 6. Patient on Blood Thinner: None 7. History of Hypertension: N 8. Opioid Therapy greater than 6 weeks: Y Opiate Contract Signed: 03/11/16 9. Risk Assessment Tool Provided: 0 LOW 10. Functional Assessment Tool: 11. Recreational Drug Use: Never Drug Type: Tobacco Use: Never Smoker Tobacco Type: Amount or Packs/day: How Many Years: Alcohol Use: Yes Frequency: Quant:
== END | disposition home or self-care (01) ==
LOC: PAIN 07:07
PROVIDERS: ATTEND Anesthesiology Pain Medicine
DX: M54.5 Low back pain (principal); M96.1 Postlaminectomy syndrome, not elsewhere classified; M19.90 Unspecified osteoarthritis, unspecified site; Z79.899 Other long term (current) drug therapy; Z88.8 Allergy status to other drugs, medicaments and biological substances

== ENCOUNTER → 2020-06-19 | Outpatient (CLI) | payer OTHER ==
[~2020-06-19] VITALS: Ht 149.9 cm; Wt 47.1 kg
--- NOTE | ~2020-06-19 | HPC ---
[facility] [address] [place] [address] PAIN MANAGEMENT CONSULTATION Name: DADA MARIEE Room #: REG MIN Makayla.#: [id number] Admission: 06/19/20 Attend Phys: Balta Frausto MD Discharge: Date of : 31 Report #: [id number] CC: Richard SOUZA MD DATE OF SERVICE: 06/19/2020 Followup visit for increasing pain in the left leg. The patient is a longstanding patient of our clinic who has been on medication for chronic pain; intrathecal management with relatively high doses of medication and also has a spinal cord stimulator. She covers all of the bases as far as our techniques for managing chronic pain. She is having some increasing pain in her left leg and it is hoped that we might be able to provide an epidural injection for her. We discussed it today, but I elected not to provide the injection because she is getting a flu shot this Friday. We did discuss the possibility that we could adjust her spinal cord stimulator. It has been a number of years since it was placed now and she has had an adjustment. Increasing scar tissue around the leads can sometimes change patterns and I think that that is worth a trial before we inject her with steroids during this period. PQRS: Reviewed. She does have osteoarthritis with multiple joints involved particularly spondylosis; also pain in knees and hands. BMI 21.0, blood pressure 146/69, heart rate 60, respirations 14, O2 sat 100% on room air. Pain intensity 7/10. She uses a walker and has not fallen in the last 3 months. No blood thinners, no history of hypertension. Opioid agreement signed many years ago was reviewed at each visit. She has a low opioid risk assessment tool score of 0 and we would expect her to take her medications cautiously and we have overseen them with no evidence of addictive behaviors. Functional assessment score is 21. She remains very active. Denies tobacco and drinks alcohol every so often in a social setting, not combining that with opioids. She is on a benzodiazepine, also at low dose and uses this mostly for sleep. I have agreed to allow her to continue on that given her evidence that she can take it safely without side effects. She denies all side effects with current medicines and the prescription drug monitoring program information reviewed is unremarkable. PHYSICAL EXAMINATION: Pleasant female, alert and oriented, no signs of dementia, anxiety or depression at this time. She moves independently from sitting to standing position, walks with a walker. She has limited range of motion of her lumbar spine, tenderness there. She complains of pain mostly into the left leg and it follows a fairly classic L4-L5 distribution. IMPRESSION: Lumbar radiculopathy, post-laminectomy syndrome. PLAN: 1. Hold off on epidural injection due to upcoming injection of vaccine on Friday at her facility. 2. Consult [employer] for adjustment of spinal cord stimulator patterns. 3. Renewal of medications, which she takes for chronic issues. Reviewed safeguarding information in the terms of our opioid agreement. 4. Return for pump refill after replacement of intrathecal pump by Dr. Olivier Moore on 07/14/2020. I believe this will be her third or fourth pump. By: [id number] Balta Frausto MD /nt
[2020-06-19 10:44] VITALS: BP 149/69
--- NOTE | 2020-06-19 10:59 | NUR ---
Pain Clinic Assessment: 1. History of Osteoarthritis: BACK B/L KNEES B/L HANDS History of Rheumatoid Arthritis: NONE 2. Height: 4 ft. 11 in. 149.9 cm. Weight: 103.8 lb. oz. 47.083 kg. Patient's BMI: 21.0 3. Vital Signs: BP: 149/69 Pulse: 60 Resp: 14 Temp: 02 Sat: 100 ECG Mon: 4. Pain Intensity: 7 5. Fall Risk: Dizziness: N Needs help standing or walking: Y Fallen in the last 3 months: N Fall risk comments: USES WALKER 6. Patient on Blood Thinner: None 7. History of Hypertension: N 8. Opioid Therapy greater than 6 weeks: Y Opiate Contract Signed: 03/11/16 9. Risk Assessment Tool Provided: 0 LOW 10. Functional Assessment Tool: 11. Recreational Drug Use: Never Drug Type: Tobacco Use: Never Smoker Tobacco Type: Amount or Packs/day: How Many Years: Alcohol Use: Yes Frequency: Monthly Quant:
== END ==
LOC: PAIN 07:00
PROVIDERS: ATTEND Anesthesiology Pain Medicine
DX: M54.16 Radiculopathy, lumbar region (principal); M96.1 Postlaminectomy syndrome, not elsewhere classified; G89.29 Other chronic pain

== ENCOUNTER → 2020-08-07 | Outpatient (CLI) | payer OTHER ==
[~2020-08-07] VITALS: Ht 149.9 cm; Wt 48.2 kg
[~2020-08-07] MED LIST changes: +NEURONTIN100 MG PO
[2020-08-07 09:23] VITALS: BP 143/43
--- NOTE | 2020-08-07 09:24 | NUR ---
Pain Clinic Assessment: 1. History of Osteoarthritis: BACK B/L KNEES B/L HANDS History of Rheumatoid Arthritis: NONE 2. Height: 4 ft. 11 in. 149.9 cm. Weight: 106.2 lb. oz. 48.172 kg. Patient's BMI: 21.4 3. Vital Signs: BP: 143/43 Pulse: 58 Resp: 16 Temp: 02 Sat: 100 ECG Mon: 4. Pain Intensity: 7 5. Fall Risk: Dizziness: N Needs help standing or walking: Y Fallen in the last 3 months: N Fall risk comments: USES WALKER 6. Patient on Blood Thinner: None 7. History of Hypertension: N 8. Opioid Therapy greater than 6 weeks: Y Opiate Contract Signed: 03/11/16 9. Risk Assessment Tool Provided: 0 LOW 10. Functional Assessment Tool: 11. Recreational Drug Use: Never Drug Type: Tobacco Use: Never Smoker Tobacco Type: Amount or Packs/day: How Many Years: Alcohol Use: Yes Frequency: Quant:
== END ==
LOC: PAIN 06:41
PROVIDERS: ATTEND Anesthesiology Pain Medicine
DX: G89.29 Other chronic pain (principal); M19.90 Unspecified osteoarthritis, unspecified site; Z88.8 Allergy status to other drugs, medicaments and biological substances; Z79.899 Other long term (current) drug therapy

== ENCOUNTER → 2020-10-16 | Outpatient (CLI) | payer OTHER ==
[~2020-10-16] VITALS: Ht 149.9 cm; Wt 48.1 kg
[2020-10-16 09:56] VITALS: BP 172/71
--- NOTE | 2020-10-16 10:05 | NUR ---
Pain Clinic Assessment: 1. History of Osteoarthritis: BACK B/L KNEES B/L HANDS History of Rheumatoid Arthritis: NONE 2. Height: 4 ft. 11 in. 149.9 cm. Weight: 106.0 lb. oz. 48.081 kg. Patient's BMI: 21.4 3. Vital Signs: BP: 172/71 Pulse: 70 Resp: 16 Temp: 02 Sat: 97 ECG Mon: 4. Pain Intensity: 5 5. Fall Risk: Dizziness: N Needs help standing or walking: N Fallen in the last 3 months: N Fall risk comments: USES WALKER 6. Patient on Blood Thinner: None 7. History of Hypertension: N 8. Opioid Therapy greater than 6 weeks: Y Opiate Contract Signed: 03/11/16 9. Risk Assessment Tool Provided: 0 LOW 10. Functional Assessment Tool: 11. Recreational Drug Use: Never Drug Type: Tobacco Use: Never Smoker Tobacco Type: Amount or Packs/day: How Many Years: Alcohol Use: Yes Frequency: Monthly Quant: 1
== END ==
LOC: PAIN 06:50
PROVIDERS: ATTEND Anesthesiology Pain Medicine
DX: G89.29 Other chronic pain (principal); M96.1 Postlaminectomy syndrome, not elsewhere classified; Y83.8 Other surgical procedures as the cause of abnormal reaction of the patient, or of later complication, without mention of misadventure at the time of the procedure; M19.90 Unspecified osteoarthritis, unspecified site

== ENCOUNTER → 2020-12-28 | Outpatient (CLI) | payer OTHER ==
[~2020-12-28] VITALS: Ht 149.9 cm; Wt 47.8 kg
[2020-12-28 10:09] VITALS: BP 137/62
--- NOTE | 2020-12-28 10:19 | NUR ---
Pain Clinic Assessment: 1. History of Osteoarthritis: BACK B/L KNEES B/L HANDS History of Rheumatoid Arthritis: NONE 2. Height: 4 ft. 11 in. 149.9 cm. Weight: 105.4 lb. oz. 47.809 kg. Patient's BMI: 21.3 3. Vital Signs: BP: 137/62 Pulse: 60 Resp: 14 Temp: 02 Sat: 98 ECG Mon: 4. Pain Intensity: 4 5. Fall Risk: Dizziness: N Needs help standing or walking: Y Fallen in the last 3 months: N Fall risk comments: USES WALKER 6. Patient on Blood Thinner: None 7. History of Hypertension: N 8. Opioid Therapy greater than 6 weeks: Y Opiate Contract Signed: 03/11/16 9. Risk Assessment Tool Provided: 0 LOW 10. Functional Assessment Tool: 11. Recreational Drug Use: Never Drug Type: Tobacco Use: Never Smoker Tobacco Type: Amount or Packs/day: How Many Years: Alcohol Use: Yes Frequency: Monthly Quant: 2
== END ==
LOC: PAIN 09:25
PROVIDERS: ATTEND Clinical Nurse Specialist Adult Health
DX: M54.16 Radiculopathy, lumbar region (principal); M96.1 Postlaminectomy syndrome, not elsewhere classified; M19.90 Unspecified osteoarthritis, unspecified site; F11.20 Opioid dependence, uncomplicated

== ENCOUNTER → 2021-01-22 | Outpatient (CLI) | payer OTHER ==
[~2021-01-22] VITALS: Ht 149.9 cm; Wt 47.6 kg
[2021-01-22 15:53] VITALS: BP 144/71
== END | disposition home or self-care (01) ==
LOC: PAIN 07:22
PROVIDERS: ATTEND Anesthesiology Pain Medicine
DX: Z45.1 Encounter for adjustment and management of infusion pump (principal); G89.29 Other chronic pain; M19.90 Unspecified osteoarthritis, unspecified site; Z98.890 Other specified postprocedural states; Z79.891 Long term (current) use of opiate analgesic; Z79.899 Other long term (current) drug therapy

== ENCOUNTER → 2021-02-19 | Outpatient (CLI) | payer OTHER ==
[~2021-02-19] VITALS: Ht 149.9 cm; Wt 46.4 kg
[2021-02-19 10:19] VITALS: BP 109/55
--- NOTE | 2021-02-19 10:34 | NUR ---
Pain Clinic Assessment: 1. History of Osteoarthritis: BACK B/L KNEES B/L HANDS History of Rheumatoid Arthritis: NONE 2. Height: 4 ft. 11 in. 149.9 cm. Weight: 102.4 lb. oz. 46.448 kg. Patient's BMI: 20.7 3. Vital Signs: BP: 109/55 Pulse: 68 Resp: 14 Temp: 02 Sat: 96 ECG Mon: 4. Pain Intensity: 5 W/ACTIVITY 5. Fall Risk: Dizziness: N Needs help standing or walking: Y Fallen in the last 3 months: N Fall risk comments: USES WALKER 6. Patient on Blood Thinner: None 7. History of Hypertension: N 8. Opioid Therapy greater than 6 weeks: Y Opiate Contract Signed: 03/11/16 9. Risk Assessment Tool Provided: 0 LOW 10. Functional Assessment Tool: 11. Recreational Drug Use: Never Drug Type: Tobacco Use: Never Smoker Tobacco Type: Amount or Packs/day: How Many Years: Alcohol Use: Yes Frequency: Quant:
== END ==
LOC: PAIN 07:08
PROVIDERS: ATTEND Clinical Nurse Specialist Adult Health
DX: M54.16 Radiculopathy, lumbar region (principal); M96.1 Postlaminectomy syndrome, not elsewhere classified; M19.90 Unspecified osteoarthritis, unspecified site; R58 Hemorrhage, not elsewhere classified; Z79.891 Long term (current) use of opiate analgesic; Z79.899 Other long term (current) drug therapy; Z72.89 Other problems related to lifestyle

== ENCOUNTER → 2021-05-03 | Outpatient (CLI) | payer OTHER ==
[~2021-05-03] VITALS: Ht 152.4 cm; Wt 46.7 kg
[2021-05-03 09:29] VITALS: BP 117/45
--- NOTE | 2021-05-03 09:43 | NUR ---
Pain Clinic Assessment: 1. History of Osteoarthritis: BACK B/L KNEES B/L HANDS History of Rheumatoid Arthritis: NONE 2. Height: 5 ft. 0 in. 152.4 cm. Weight: 103.0 lb. oz. 46.720 kg. Patient's BMI: 20.1 3. Vital Signs: BP: 117/45 Pulse: 64 Resp: 16 Temp: 02 Sat: 100 ECG Mon: 4. Pain Intensity: 5 W/ACTIVITY 5. Fall Risk: Dizziness: N Needs help standing or walking: N Fallen in the last 3 months: N Fall risk comments: USES WALKER 6. Patient on Blood Thinner: None 7. History of Hypertension: N 8. Opioid Therapy greater than 6 weeks: Y Opiate Contract Signed: 03/11/16 9. Risk Assessment Tool Provided: 0 LOW 10. Functional Assessment Tool: 11. Recreational Drug Use: Never Drug Type: Tobacco Use: Never Smoker Tobacco Type: Amount or Packs/day: How Many Years: Alcohol Use: Yes Frequency: Quant:
== END | disposition home or self-care (01) ==
LOC: PAIN 08:32
PROVIDERS: ATTEND Anesthesiology Pain Medicine
DX: Z45.1 Encounter for adjustment and management of infusion pump (principal); G89.29 Other chronic pain; M54.16 Radiculopathy, lumbar region; M96.1 Postlaminectomy syndrome, not elsewhere classified; M19.90 Unspecified osteoarthritis, unspecified site; Z98.890 Other specified postprocedural states; Z79.899 Other long term (current) drug therapy; Z96.651 Presence of right artificial knee joint

== ENCOUNTER → 2021-08-13 | Outpatient (CLI) | payer OTHER ==
[~2021-08-13] VITALS: Ht 149.9 cm; Wt 49.5 kg
[2021-08-13 09:33] VITALS: BP 148/70
--- NOTE | 2021-08-13 09:50 | NUR ---
Pain Clinic Assessment: 1. History of Osteoarthritis: BACK B/L KNEES B/L HANDS History of Rheumatoid Arthritis: NONE 2. Height: 4 ft. 11 in. 149.9 cm. Weight: 103.0 lb. oz. 49.499 kg. Patient's BMI: 22.0 3. Vital Signs: BP: 148/70 Pulse: 67 Resp: 14 Temp: 02 Sat: 98 ECG Mon: 4. Pain Intensity: 5 W/ACTIVITY; KNEE 8 5. Fall Risk: Dizziness: N Needs help standing or walking: Y Fallen in the last 3 months: N Fall risk comments: USES WALKER 6. Patient on Blood Thinner: None 7. History of Hypertension: N 8. Opioid Therapy greater than 6 weeks: Y Opiate Contract Signed: 03/11/16 9. Risk Assessment Tool Provided: 0 LOW 10. Functional Assessment Tool: 11. Recreational Drug Use: Never Drug Type: Tobacco Use: Never Smoker Tobacco Type: Amount or Packs/day: How Many Years: Alcohol Use: Yes Frequency: Special Occasions Quant: 1
== END | disposition home or self-care (01) ==
LOC: PAIN 09:18
PROVIDERS: ATTEND Anesthesiology Pain Medicine
DX: Z45.1 Encounter for adjustment and management of infusion pump (principal); G89.29 Other chronic pain; M54.59 Other low back pain; M19.90 Unspecified osteoarthritis, unspecified site; Z98.890 Other specified postprocedural states; Z79.899 Other long term (current) drug therapy